=== PATIENT | female | born 1995 | race Caucasian/White ===

== ENCOUNTER → 2017-01-21 | Emergency (ER) | payer OTHER ==
[~2017-01-21] VITALS: Ht 167.6 cm; Wt 55.8 kg
[~2017-01-21] MED LIST: HC A30CR RC; KETOROLAC 30 MG/ML VIAL IVP ONE; MECL-106 PO; NS IV 1000 ML 1,000 ML IV SCH; ONDANSETRON 4 MG/2 ML (SDV) Z0FRAN IVP ONE; POLY119P5 PO; RX-ONDANSETRON 4 MG ODT (ZOFRAN) PPK #4 PO STA; SULF1TAB35 PO
[2017-01-21 20:50] VITALS: BP 130/85
--- NOTE | 2017-01-21 21:02 | ED Back Pain ---
General Chief Complaint: Back Problems Stated Complaint: BACK PAIN Nursing Triage Note: kidney pain/ vomitting since this am Nursing Sepsis Screen: No Definite Risk Source of Information: Patient Exam Limitations: No Limitations History of Present Illness Time Seen by Provider: 21:00 Initial Comments To ER with bilateral flank pain and vomiting since this morning. She reports frequent urination for several days. Timing/Duration: 2-3 Days Severity: Moderate Associated Symptoms: lower back pain Allergies and Home Medications Allergies Coded Allergies: hydrocodone (Verified Adverse Reaction, Mild, odd sensation, 07/20/15) Uncoded Allergies: [id number] (HAYFEVER) (Allergy, Mild, 07/26/09) Home Medications Hydrocortisone/Pramoxine 30 Gm Cream.appl, 30 GM RC UD PRN for HEMORRHOIDS, #1 Ref 0 apply to affected area qid x7-10 days prn hemorrhoids Prescribed by: JODY CRUZ on 11/16/15 1533 Polyethylene Glycol 3350 119 Gm Powder, 17 GM PO HS PRN for CONSTIPATION, #1 Ref 0 Prescribed by: JODY CRUZ on 11/16/15 1533 Constitutional: see HPI, No chills, No fever EENTM: see HPI Respiratory: no symptoms reported Cardiovascular: no symptoms reported Genitourinary: see HPI, frequency Musculoskeletal: see HPI, back pain Skin: no symptoms reported Psychiatric/Neurological: No Symptoms Reported Past Pxdmvfq-Ujjmum-Bxatft Hx Patient Social History Alcohol Use: Denies Use Recreational Drug Use: No Smoking Status: Never a Smoker Recent Foreign Travel: No Contact w/Someone Who Travel: No Recent Infectious Disease Expo: No Recent Hopitalizations: No Seasonal Allergies Seasonal Allergies: No Surgeries HX Surgeries: No Respiratory Hx Respiratory Disorders: No Cardiovascular Hx Cardiac Disorders: No Neurological Hx Neurological Disorders: No Reproductive System Hx Reproductive Disorders: No Genitourinary Hx Genitourinary Disorders: No Gastrointestinal Hx Gastrointestinal Disorders: No Musculoskeletal Hx Musculoskeletal Disorders: No Endocrine Hx Endocrine Disorders: No HEENT HX ENT Disorders: Yes (Right eye: Lazy eye) HEENT Disorders: Tinnitis Cancer Hx Cancer: No Psychosocial Hx Psychiatric Problems: No Integumentary HX Skin/Integumentary Disorder: No Blood Transfusions Hx Blood Disorders: No Adverse Reaction to a Blood Tr: No Family Medical History Significant Family History: No Pertinent Family Hx Physical Exam Vital Signs Vital Sign - Last 12Hours 01/21/17 20:50 Temp 100.8 Pulse 119 Resp 20 B/P (MAP) 130/85 Pulse Ox 100 O2 Delivery Room Air Capillary Refill : NONE General Appearance: No Apparent Distress, WD/WN, Anxious, Other (crying, tearful when starting the IV. Advised her that she needed the IV in case this was a pyelonephritis or sepsis she would need IV antibiotics and IV fluids however we would not force her to do anything and if she does not want the IV then she can sign a refusal of services form. She agrees to the IV.) HEENT: PERRL/EOMI, TMs Normal Neck: Full Range of Motion, Normal Inspection Cardiovascular: Normal Peripheral Pulses, Tachycardia Respiratory: Normal Breath Sounds, No Accessory Muscle Use, No Respiratory Distress Gastrointestinal: Non Tender, Soft Back: CVA Tenderness (L), CVA Tenderness (R) Extremity: Normal Capillary Refill, Normal Inspection Neurologic/Psychiatric: Alert, Oriented x3 Skin: Normal Color, Warm/Dry Progress/Results/Core Measures Results/Orders Lab Results Laboratory Tests Test 01/21/17 20:57 01/21/17 20:58 Range/Units Urine Color YELLOW Urine Clarity SLIGHTLY CLOUDY Urine pH 5 5-9 Urine Specific [place] 1.025 H 1.016-1.022 Urine Protein 2+ H NEGATIVE Urine Glucose (UA) NEGATIVE NEGATIVE Urine Ketones NEGATIVE NEGATIVE Urine Nitrite NEGATIVE NEGATIVE Urine Bilirubin NEGATIVE NEGATIVE Urine Urobilinogen NORMAL NORMAL MG/DL Urine Leukocyte Esterase 1+ H NEGATIVE Urine RBC (Auto) 5+ H NEGATIVE Urine RBC >100 H /HPF Urine WBC 0-2 /HPF Urine Squamous Epithelial Cells 25-50 H /HPF Urine Crystals NONE /LPF Urine Bacteria FEW H /HPF Urine Casts NONE /LPF Urine Mucus NEGATIVE /LPF Urine Culture Indicated NO White Blood Count 6.2 4.3-11.0 10^3/uL Red Blood Count 5.06 4.35-5.85 10^6/uL Hemoglobin 15.3 11.5-16.0 G/DL Hematocrit 44 35-52 % Mean Corpuscular Volume 86 80-99 FL Mean Corpuscular Hemoglobin 30 25-34 PG Mean Corpuscular Hemoglobin Concent 35 32-36 G/DL Red Cell Distribution Width 12.2 10.0-14.5 % Platelet Count 170 130-400 10^3/uL Mean Platelet Volume 10.3 7.4-10.4 FL Neutrophils (%) (Auto) 72 42-75 % Lymphocytes (%) (Auto) 16 12-44 % Monocytes (%) (Auto) 12 0-12 % Eosinophils (%) (Auto) 0 0-10 % Basophils (%) (Auto) 0 0-10 % Neutrophils # (Auto) 4.4 1.8-7.8 X 10^3 Lymphocytes # (Auto) 1.0 1.0-4.0 X 10^3 Monocytes # (Auto) 0.7 0.0-1.0 X 10^3 Eosinophils # (Auto) 0.0 0.0-0.3 10^3/uL Basophils # (Auto) 0.0 0.0-0.1 10^3/uL Sodium Level 140 135-145 MMOL/L Potassium Level 3.7 3.6-5.0 MMOL/L Chloride Level 108 H 98-107 MMOL/L Carbon Dioxide Level 21 21-32 MMOL/L Anion Gap 11 5-14 MMOL/L Blood Urea Nitrogen 11 7-18 MG/DL Creatinine 0.99 0.60-1.30 MG/DL Estimat Glomerular Filtration Rate > 60 BUN/Creatinine Ratio 11 Glucose Level 103 70-105 MG/DL Calcium Level 9.6 8.5-10.1 MG/DL Total Bilirubin 0.6 0.1-1.0 MG/DL Aspartate Amino Transf (AST/SGOT) 18 5-34 U/L Alanine Aminotransferase (ALT/SGPT) 10 0-55 U/L Alkaline Phosphatase 65 40-136 U/L Total Protein 7.5 6.4-8.2 G/DL Albumin 4.7 H 3.2-4.5 G/DL My Orders Orders - JOE PHOENIX APRN Ns Iv 1000 Ml (Sodium Chloride 0.9%) (01/21/17 21:00) Ketorolac Injection (Toradol Injection) (01/21/17 21:00) Ondansetron Injection (Zofran Injectio (01/21/17 21:00) Cbc With Automated Diff (01/21/17 20:59) Comprehensive Metabolic Panel (01/21/17 20:59) Ua Culture If Indicated (01/21/17 20:59) Urine Bedside (01/21/17 20:59) Saline Lock/Iv-Start (01/21/17 20:59) Ct Abd/Pelvis Wo(Kidney Stone) (01/21/17 21:14) Rx-Ondansetron Po (Rx-Zofran Po) (01/21/17 21:28) Medications Given in ED Current Medications Medications Dose Ordered Sig/Aime Route Start Time Stop Time Status Last Admin Dose Admin Ketorolac Tromethamine 30 mg ONCE ONCE IVP 01/21/17 21:00 01/21/17 21:01 DC 01/21/17 21:04 30 MG Ondansetron HCl 4 mg ONCE ONCE IVP 01/21/17 21:00 01/21/17 21:01 DC 01/21/17 21:05 4 MG Vital Signs/I&O Vital Sign - Last 12Hours 01/21/17 20:50 Temp 100.8 Pulse 119 Resp 20 B/P (MAP) 130/85 Pulse Ox 100 O2 Delivery Room Air Blood Pressure Mean: 100 Diagnostic Imaging Diagonstic Imaging: CT Comments NAME: ZOFIA CULVER [facility] REC#: [id number] PT STATUS: REG ER : 1995 PHYSICIAN: JOE PHOENIX APRN ADMIT DATE: 01/21/17/ER Draft Date of Exam:01/21/17 CT ABD/PELVIS WO(KIDNEY STONE) PROCEDURE: CT urinary tract, rule out kidney stone. TECHNIQUE: Multiple contiguous axial images were obtained through the abdomen and pelvis without the use of intravenous contrast. INDICATION: 22-year-old female presents with lower back pain and vomiting since morning. COMPARISON: None. FINDINGS: Lung bases are clear. Cardiac contour is normal. Liver shows uniform attenuation. There is no intraparenchymal mass or ductal dilatation. Gallbladder shows a fluid fluid level suggesting some biliary sludge. There is no wall thickening or pericholecystic fluid. Spleen and GE junction are normal. Stomach and duodenal sweep are also unremarkable. Pancreas shows sharp margins. Adrenals are normal. There is a 7 mm cyst in the right kidney containing a small calcification. No other discrete calculi are seen. There is no evidence of hydronephrosis. Both ureters are seen intermittently throughout their course with no evidence of hydroureter or ureteral calculus. Bladder is underfilled. The uterus and adnexa appear grossly unremarkable. The nonopacified loops of small bowel are unremarkable. There are, however, mesenteric nodes slightly prominent as would be seen with adenitis. The appendix is normal in size and contains small pockets of gas. There is no evidence of appendicitis. Large bowel contains fecal material and gas. There is no free air or free fluid. A few benign-appearing inguinal nodes are seen. Bone windows show no overall gross abnormalities. IMPRESSION: 1. Biliary sludge, but no secondary signs of acute cholecystitis; however, correlation with gallbladder ultrasound may be of further value. 2. Incidental small 7 mm cyst in the right kidney with a small calcification but no evidence of obstructive uropathy. 3. There is no evidence of appendicitis. 4. Mesenteric nodes are slightly prominent with some minimal stranding. Mesenteric adenitis is within the differential. Dictated on workstation # [id number] Dict: 01/21/172133 Trans: 01/21/172142 [facility] [id number] Interpreted by: ALEJANDRO PENA MD Electronically signed by: Departure Impression Impression: Primary Impression: Musculoskeletal back pain Disposition: HOME, SELF-CARE Condition: Stable Departure-Patient Inst. Decision time for Depature: 21:04 Referrals: [facility] (PCP/Family) Primary Care Physician Patient Instructions: Urinary Tract Infection, Adult (DC) Add. Discharge Instructions: 1. Drink plenty of fluids 2. Nausea medication as needed 3. Tylenol and Motrin for pain 4. Return to ER for any worsening 5. Follow-up with your doctor later this week All discharge instructions reviewed with patient and/or family. Voiced understanding. Copy Copies To 1: RAINER GILLIAM PETER J APRN Jan 21, 2017 21:02
[2017-01-21 21:05] LABS: BILIRUBIN,URINE NEGATIVE (NEGATIVE); KETONES,URINE NEGATIVE (NEGATIVE); LEUKOCYTE ESTERASE ,URINE 1+ (NEGATIVE); NITRITE,URINE NEGATIVE (NEGATIVE); PH,URINE 5 (5-9); PROTEIN,URINE 2+ (NEGATIVE); UROBILINOGEN,URINE NORMAL (NORMAL)
[2017-01-21 21:05] LABS: BASOPHILS % (AUTO) 0 % (0-10); EOSINOPHILS % (AUTO) 0 % (0-10); LYMPHOCYTES % (AUTO) 16 % (12-44); MEAN CORPUSCULAR HEMOGLOBIN 30 PG (25-34); MEAN CORPUSCULAR HGB CONC 35 G/DL (32-36); MEAN CORPUSCULAR VOLUME 86 FL (80-99); MEAN PLATELET VOLUME 10.3 FL (7.4-10.4); MONOCYTES # (AUTO) 0.7 X 10^3 (0.0-1.0); MONOCYTES % (AUTO) 12 % (0-12); NEUTROPHILS # (AUTO) 4.4 X 10^3 (1.8-7.8); NEUTROPHILS % (AUTO) 72 % (42-75); PLATELET COUNT 170 10^3/uL (130-400); RED BLOOD COUNT 5.06 10^6/uL (4.35-5.85); RED CELL DISTRIBUTION WIDTH 12.2 % (10.0-14.5); WHITE BLOOD COUNT 6.2 10^3/uL (4.3-11.0)
[2017-01-21 21:13] LABS: SQUAMOUS EPITHELIAL CELL,UR 25-50 /HPF; WBC,URINE 0-2 /HPF
[2017-01-21 21:19] LABS: ALANINE AMINOTRANSFERASE 10 U/L (0-55); ALBUMIN 4.7 G/DL (3.2-4.5); ANION GAP 11 MMOL/L (5-14); ASPARTATE AMINO TRANSFERASE 18 U/L (5-34); BILIRUBIN,TOTAL 0.6 MG/DL (0.1-1.0); BLOOD UREA NITROGEN 11 MG/DL (7-18); BUN/CREATININE RATIO 11; CALCIUM 9.6 MG/DL (8.5-10.1); CARBON DIOXIDE 21 MMOL/L (21-32); CHLORIDE 108 MMOL/L (98-107); CREATININE SERUM 0.99 MG/DL (0.60-1.30); GFR ESTIMATED > 60; GLUCOSE 103 MG/DL (70-105); POTASSIUM 3.7 MMOL/L (3.6-5.0); SODIUM 140 MMOL/L (135-145); TOTAL PROTEIN 7.5 G/DL (6.4-8.2)
--- NOTE | 2017-01-21 21:43 | Diagnostic Imaging Report ---
PROCEDURE: CT urinary tract, rule out kidney stone. TECHNIQUE: Multiple contiguous axial images were obtained through the abdomen and pelvis without the use of intravenous contrast. INDICATION: 22-year-old female presents with lower back pain and vomiting since morning. COMPARISON: None. FINDINGS: Lung bases are clear. Cardiac contour is normal. Liver shows uniform attenuation. There is no intraparenchymal mass or ductal dilatation. Gallbladder shows a fluid fluid level suggesting some biliary sludge. There is no wall thickening or pericholecystic fluid. Spleen and GE junction are normal. Stomach and duodenal sweep are also unremarkable. Pancreas shows sharp margins. Adrenals are normal. There is a 7 mm cyst in the right kidney containing a small calcification. No other discrete calculi are seen. There is no evidence of hydronephrosis. Both ureters are seen intermittently throughout their course with no evidence of hydroureter or ureteral calculus. Bladder is underfilled. The uterus and adnexa appear grossly unremarkable. The nonopacified loops of small bowel are unremarkable. There are, however, mesenteric nodes slightly prominent as would be seen with adenitis. The appendix is normal in size and contains small pockets of gas. There is no evidence of appendicitis. Large bowel contains fecal material and gas. There is no free air or free fluid. A few benign-appearing inguinal nodes are seen. Bone windows show no overall gross abnormalities. IMPRESSION: 1. Biliary sludge, but no secondary signs of acute cholecystitis; however, correlation with gallbladder ultrasound may be of further value. 2. Incidental small 7 mm cyst in the right kidney with a small calcification but no evidence of obstructive uropathy. 3. There is no evidence of appendicitis. 4. Mesenteric nodes are slightly prominent with some minimal stranding. Mesenteric adenitis is within the differential. Dictated by: Dictated on workstation # [id number]
--- OUTSIDE RECORDS SUMMARY | 2017-01-24 10:49 | XMS REPORT | Clinical Summary ---
Author Author Admin, HALI Organization [facility] Address Unknown Phone Unavailable Allergies, Adverse Reactions, Alerts Allergy Name Reaction Description Start Date Severity Status Provider NKDA Mild No Longer Active Wesley Ham MD HYDROCODONE-ACETAMINOPHEN Patient states makes her feel "high" or "loopy" Moderate Active Wesley Ham MD NKDA Critical No Longer Active Maxwell WILKERSON NKDA UNK Inactive Maria Fernanda Jolly LPN Conditions or Problems Problem Name Problem Code Onset Date Status Entry Date Provider Comment Standard Description Annotate UPPER RESPIRATORY INFECTION (URI) 465.9 Active Maxwell WILKERSON Acute upper respiratory infections of unspecified site EUSTACHIAN TUBE DYSFUNCTION, BILATERAL 381.81 Active Klever Reeves DO Dysfunction of Eustachian tube ABDOMINAL CRAMPS 789.00 Active Klever Reeves DO Abdominal pain, unspecified site DYSMENORRHEA 625.3 Active Maxwell WILKERSON Dysmenorrhea TINNITUS 388.30 Active Maxwell WILKERSON Tinnitus, unspecified MUSCLE STRAIN, ABDOMINAL WALL 848.8 Active Phillip WILKERSON Other specified sites of sprains and strains Medication List Medication Instructions Start Date Stop Date Generic Name NDC Status Provider Patient Instruction HYDROCODONE-ACETAMINOPHEN 5-325 MG TABS 1 PO q 8 hrs PRN cramps, pain HYDROCODONE-ACETAMINOPHEN [id number] No Longer Active Phillip WILKERSON Active NASONEX 50 MCG/ACT SUSP 1 spray each nostril q am and hs for ear pain with ringing MOMETASONE FUROATE 79832299551 No Longer Active Maxwell WILKERSON Active ZITHROMAX 500 MG TABS 1 tablet by mouth daily AZITHROMYCIN 97853100679 No Longer Active Maxwell WILKERSON Active NASONEX 50 MCG/ACT SUSP 1 spray each nostril q am and hs for ear pain with ringing NASONEX 50 MCG/ACT SUSP MOMETASONE FUROATE Inactive HYDROCODONE-ACETAMINOPHEN 5-325 MG TABS 1 PO q 8 hrs PRN cramps, pain HYDROCODONE-ACETAMINOPHEN 5-325 MG TABS 629544 HYDROCODONE- ACETAMINOPHEN Inactive ZITHROMAX 500 MG TABS 1 tablet by mouth daily ZITHROMAX 500 MG TABS 2301626 AZITHROMYCIN Inactive Advance Directives Directive Description Start Date PERMISSION TO SHARE Vital Signs Date Name Value Unit Range Description blood pressure, diastolic - 8462-4 72 mm[Hg] BP dobbins blood pressure, systolic - 8480-6 115 mm[Hg] BP sys pulse rate E&M - 8867-4 83 /min Heart rate temperature E&M 96.7 [degF] Body temperature weight E&M - 3141-9 123 [lb_av] Weight Measured Encounters Code Encounter Date Provider Facility CPT-12767 Level 3 Est. 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 Patient 11:29:17 CDT Phillip WILKERSON [facility] CPT-48258 Level 3 Est. Patient 14:27:21 CDT Maxwell WILKERSON [facility] CPT-38446 Level 3 Est. Patient 05:42:01 CDT Klever Reeves DO [facility] CPT-93304 Level 3 Est. Patient 18:34:34 BILINGUAL OPERATOR Maxwell WILKERSON [facility] Procedures Code Procedure Name Date Entry Date Standard Description CPT-98066 Abd single AP View 14:54:46 CDT
--- OUTSIDE RECORDS SUMMARY | 2017-01-24 10:49 | XMS REPORT | Continuity of Care Document ---
Author Author [facility] Address Unknown Phone Unavailable Allergies Active Description Code Type Severity Reaction Onset Reported/Identified Relationship to Patient Clinical Status Yes [id number] (HAYFEVER) [id number] (HAYFEVER) Mild N/A 07/26/2009 Yes hydrocodone [id number] Drug Allergy Mild odd sensation 07/20/2015 Medications Problems Date Dx Coded Attending Type Code Diagnosis Diagnosed By 10/30/2014 DOUGLAS PORTER APRN 564.00 CONSTIPATION 07/20/2015 Ot 620.2 07/20/2015 EVI DUNCAN MD Ot V70.5 07/20/2015 JOE PHOENIX APRN Ot 780.4 DIZZINESS AND GIDDINESS 07/20/2015 JOE PHOENIX APRN Ot 784.0 HEADACHE 07/20/2015 Ot 620.2 07/20/2015 EVI DUNCAN MD Ot V70.5 07/22/2015 Ot 620.2 07/22/2015 EVI DUNCAN MD Ot V70.5 10/04/2015 Ot 620.2 10/04/2015 EVI DUNCAN MD Ot V70.5 11/16/2015 Ot 620.2 11/16/2015 EVI DUNCAN MD Ot V70.5 11/16/2015 JODY BRUNO Ot K59.00 CONSTIPATION, UNSPECIFIED 11/16/2015 JODY BRUNO Ot K64.4 RESIDUAL HEMORRHOIDAL SKIN TAGS 11/16/2015 JODY BRUNO Ot N39.0 URINARY TRACT INFECTION, SITE NOT SPECIF 02/17/2016 Ot 620.2 OVARIAN CYST NEC/NOS 02/17/2016 EVI DUNCAN MD Ot V70.5 HEALTH EXAM-GROUP SURVEY 10/16/2016 EVI DUNCAN MD Ot V70.5 HEALTH EXAM-GROUP SURVEY 10/16/2016 JOE PHOENIX APRN Ot R07.89 OTHER CHEST PAIN 10/19/2016 JOE PHOENIX APRN Ot R07.89 OTHER CHEST PAIN 10/20/2016 JOE PHOENIX APRN Ot R07.89 OTHER CHEST PAIN Procedures Results Test Result Range Complete urinalysis with reflex to culture - 01/21/17 20:57 Urine color determination YELLOW NRG Urine clarity determination SLIGHTLY CLOUDY NRG Urine pH measurement by test strip 5 5- 9 Specific gravity of urine by test strip 1.025 1.016-1.022 Urine protein assay by test strip, semi-quantitative 2+ NEGATIVE Urine glucose detection by automated test strip NEGATIVE NEGATIVE Erythrocytes detection in urine sediment by light microscopy 5+ NEGATIVE Urine ketones detection by automated test strip NEGATIVE NEGATIVE Urine nitrite detection by test strip NEGATIVE NEGATIVE Urine total bilirubin detection by test strip NEGATIVE NEGATIVE Urine urobilinogen measurement by automated test strip (mass/volume) NORMAL NORMAL Urine leukocyte esterase detection by dipstick 1+ NEGATIVE Automated urine sediment erythrocyte count by microscopy (number/high power field) > [HPF] NRG Automated urine sediment leukocyte count by microscopy (number/high power field ) [HPF] NRG Bacteria detection in urine sediment by light microscopy FEW NRG Squamous epithelial cells detection in urine sediment by light microscopy 25-50 NRG Crystals detection in urine sediment by light microscopy NONE NRG Casts detection in urine sediment by light microscopy NONE NRG Mucus detection in urine sediment by light microscopy NEGATIVE NRG Complete urinalysis with reflex to culture NO NRG Complete blood count (CBC) with automated white blood cell (WBC) differential - 01/21/17 20:58 Blood leukocytes automated count (number/volume) 6.2 10*3/ uL 4.3-11.0 Blood erythrocytes automated count (number/volume) 5.06 10*6 /uL 4.35-5.85 Venous blood hemoglobin measurement (mass/volume) 15.3 g/dL 11.5-16.0 Blood hematocrit (volume fraction) 44 % 35-52 Automated erythrocyte mean corpuscular volume 86 [foz_us] 80-99 Automated erythrocyte mean corpuscular hemoglobin (mass per erythrocyte) 30 pg 25-34 Automated erythrocyte mean corpuscular hemoglobin concentration measurement ( mass/volume) 35 g/dL 32-36 Automated erythrocyte distribution width ratio 12.2 % 10.0-14.5 Automated blood platelet count (count/volume) 170 10*3/uL 130-400 Automated blood platelet mean volume measurement 10.3 [foz_ us] 7.4-10.4 Automated blood neutrophils/100 leukocytes 72 % 42-75 Automated blood lymphocytes/100 leukocytes 16 % 12-44 Blood monocytes/100 leukocytes 12 % 0-12 Automated blood eosinophils/100 leukocytes 0 % 0-10 Automated blood basophils/100 leukocytes 0 % 0-10 Blood neutrophils automated count (number/volume) 4.4 10*3 1.8-7.8 Blood lymphocytes automated count (number/volume) 1.0 10*3 1.0-4.0 Blood monocytes automated count (number/volume) 0.7 10*3 0.0-1.0 Automated eosinophil count 0.0 10*3/uL 0.0-0.3 Automated blood basophil count (count/volume) 0.0 10*3/uL 0.0-0.1 Comprehensive metabolic panel - 01/21/17 20:58 Serum or plasma sodium measurement (moles/volume) 140 mmol/ L 135-145 Serum or plasma potassium measurement (moles/volume) 3.7 mmol/L 3.6-5.0 Serum or plasma chloride measurement (moles/volume) 108 mmol /L 98-107 Carbon dioxide 21 mmol/L 21-32 Serum or plasma anion gap determination (moles/volume) 11 mmol/L 5-14 Serum or plasma urea nitrogen measurement (mass/volume) 11 mg/dL 7-18 Serum or plasma creatinine measurement (mass/volume) 0.99 mg /dL 0.60-1.30 Serum or plasma urea nitrogen/creatinine mass ratio 11 NRG Serum or plasma creatinine measurement with calculation of estimated glomerular filtration rate > NRG Serum or plasma glucose measurement (mass/volume) 103 mg/dL 70-105 Serum or plasma calcium measurement (mass/volume) 9.6 mg/dL 8.5-10.1 Serum or plasma total bilirubin measurement (mass/volume) 0.6 mg/dL 0.1-1.0 Serum or plasma alkaline phosphatase measurement (enzymatic activity/volume) 65 U/L 40-136 Serum or plasma aspartate aminotransferase measurement (enzymatic activity/ volume) 18 U/L 5-34 Serum or plasma alanine aminotransferase measurement (enzymatic activity/volume ) 10 U/L 0-55 Serum or plasma protein measurement (mass/volume) 7.5 g/dL 6.4-8.2 Serum or plasma albumin measurement (mass/volume) 4.7 g/dL 3.2-4.5 Encounters ACCT No. Visit Date/Time Discharge Status Pt. Type Provider Facility Loc./Unit Complaint [id number] 10/30/2014 17:26:00 10/30/2014 23: 59:59 CLS Outpatient DOUGLAS PORTER APRN
--- OUTSIDE RECORDS SUMMARY | 2017-01-24 10:49 | XMS REPORT ---
Author Author DIPTI YATES Organization [employer] Address Unknown Phone Unavailable Care Team Providers Care Counter Maker Name Role Phone DIPTI YATES CP Unavailable Allergies No Known Allergies Problems Problem Type Condition Code Onset Dates Condition Status Problem Oligomenorrhea N91.5 Active Problem Primary dysmenorrhea N94.4 Active Medications No Known Medications Results No Known Results Summary Purpose [employer] Submission
--- OUTSIDE RECORDS SUMMARY | 2017-01-24 10:50 | XMS REPORT ---
Author Author RITO PANDEY [employer] Address Unknown Phone Unavailable Care Team Providers Care Physician [facility] Name Role Phone RITO PANDEY CP Unavailable Allergies No Known Allergies Problems Problem Type Condition ICD-9 Code Onset Dates Condition Status Assessment Dental examination V72.2 Active Medications No Known Medications Procedures Procedure Coding System Code Date INTRAORL-PERIAPICAL 1 FILM 80334 CPT-4 D0220 May 20, 2015 INTRAORL-PERIAPICAL EA ADD FILM CPT-4 D0230 May 20, 2015 COMP ORAL EVALUATION - NEW/EST PT CPT-4 D0150 May 20, 2015 TOPICAL FLUORIDE VARNISH CPT-4 D1206 May 20, 2015 BITEWINGS - FOUR FILMS CPT-4 D0274 May 20, 2015 INTRAORL-PERIAPICAL EA ADD FILM CPT-4 D0230 May 20, 2015 PROPHYLAXIS - ADULT CPT-4 D1110 May 20, 2015 PANORAMIC FILM SEE ALSO CODE 21686 CPT-4 D0330 May 20, 2015 Results No Known Results Summary Purpose [employer] Submission
--- OUTSIDE RECORDS SUMMARY | 2017-01-24 10:50 | XMS REPORT ---
Author RAINER Kang [employer] Address Unknown Phone Unavailable Care Team Providers Care Liquid Yeast Supervisor Name Role Phone RAINER GILLIAM CP Unavailable Allergies No Known Allergies Problems Problem Type Condition Code Onset Dates Condition Status Problem Encounter for Depo-Provera contraception Z30.42 Active Problem Primary dysmenorrhea N94.4 Active Problem Wellness examination Z00.00 Active Problem Oligomenorrhea N91.5 Active Assessment Encounter for Depo-Provera contraception Z30.42 Active Medications No Known Medications Procedures Procedure Coding System Code Date DEPO PROVERA (150 MG/ML) CPT-4 J1050 Sep 18, 2016 THER/PROPH/DIAG INJ, SC/IM CPT-4 92678 Sep 18, 2016 URINE TEST CPT-4 64936 Sep 18, 2016 Results Name Result Date Reference Range Unit Abnormality Flag TEST, URINE (IN HOUSE) ----RESULTS negative [id number] ----Lot # [id number] ----Control + [id number] ----Exp date [id number] Summary Purpose [employer] Submission
--- OUTSIDE RECORDS SUMMARY | 2017-01-24 10:50 | XMS REPORT ---
Author Author DIPTI YATES Organization [employer] Address Unknown Phone Unavailable Care Team Providers Care Swimming Pool Maintenance Name Role Phone DIPTI YATES CP Unavailable Allergies, Adverse Reactions, Alerts Substance Reaction Event Type Hydrocodone Bitartrate Info Not Available Drug Allergy Problems Problem Type Condition Code Onset Dates Condition Status Problem Oligomenorrhea N91.5 Active Assessment Encounter for Depo-Provera contraception Z30.42 Active Problem Primary dysmenorrhea N94.4 Active Medications Medication Code System Code Instructions Start Date End Date Status Dosage Ibuprofen [facility] [address]-35 600 mg January 01, 2015 take 1 tablet by Oral route 3 times per day with food PRN for pain Procedures Procedure Coding System Code Date DEPO PROVERA (150 MG/ML) CPT-4 J1050 February 04, 2016 THER/PROPH/DIAG INJ, SC/IM CPT-4 94795 February 04, 2016 URINE TEST CPT-4 10906 February 04, 2016 Office Visit, Est Pt., Level 3 CPT-4 73045 February 04, 2016 Vital Signs Date/Time: February 04, 2016 Temperature 98.3 F Weight 124.6 lbs Height 64 in BMI 21.39 Index Blood Pressure Diastolic 72 mmHg Blood Pressure Systolic 120 mmHg Cardiac Monitoring Heart Rate 88 bpm Results No Known Results Summary Purpose [employer] Submission
--- OUTSIDE RECORDS SUMMARY | 2017-01-24 10:50 | XMS REPORT ---
Author Author DIPTI YATES Organization [employer] Address Unknown Phone Unavailable Care Team Providers Care Can Technician Name Role Phone DIPTI YATES CP Unavailable Allergies No Known Allergies Problems Problem Type Condition Code Onset Dates Condition Status Problem Encounter for Depo-Provera contraception Z30.42 Active Problem Primary dysmenorrhea N94.4 Active Problem Wellness examination Z00.00 Active Problem Oligomenorrhea N91.5 Active Medications No Known Medications Results No Known Results Summary Purpose [employer] Submission
--- OUTSIDE RECORDS SUMMARY | 2017-01-24 10:50 | XMS REPORT | Clinical Summary ---
Author Author Admin, HALI Organization [facility] Address Unknown Phone Unavailable Allergies, Adverse Reactions, [...] q 8 hrs PRN cramps, pain HYDROCODONE-ACETAMINOPHEN 48292737172 No Longer Active Phillip WILKERSON Active NASONEX 50 MCG/ACT SUSP 1 spray each nostril q am and hs for ear pain with ringing MOMETASONE FUROATE 14535374231 No Longer Active Maxwell WILKERSON Active ZITHROMAX 500 MG TABS 1 tablet by mouth daily AZITHROMYCIN 42063899647 No Longer Active Maxwell WILKERSON Active NASONEX 50 MCG/ACT SUSP 1 spray each nostril q am and hs for ear pain with ringing NASONEX 50 MCG/ACT SUSP MOMETASONE FUROATE Inactive HYDROCODONE-ACETAMINOPHEN 5-325 MG TABS 1 PO q 8 hrs PRN cramps, pain HYDROCODONE-ACETAMINOPHEN 5-325 MG TABS 495304 HYDROCODONE- ACETAMINOPHEN Inactive ZITHROMAX 500 MG TABS 1 tablet by mouth daily ZITHROMAX 500 MG TABS [id number] AZITHROMYCIN Inactive Advance Directives Directive Description Start [...] Measured Encounters Code Encounter Date Provider Facility CPT-53116 Level 3 Est. Patient 19:05:19 NEGATIVE CLEANER Wesley Ham MD [facility] CPT-28420 Level 3 Est. Patient 11:29:17 CDT Phillip WILKERSON [facility] CPT-02942 Level 3 Est. Patient 14:27:21 CDT Maxwell WILKERSON [facility] CPT-87619 Level 3 Est. Patient 05:42:01 CDT Klever Reeves DO [facility] CPT-78476 Level 3 Est. Patient 18:34:34 NEGATIVE CLEANER Maxwell WILKERSON [facility] Procedures Code Procedure Name Date Entry Date Standard Description CPT-22733 Abd single AP View 14:54:46 CDT
--- OUTSIDE RECORDS SUMMARY | 2017-01-24 10:50 | XMS REPORT ---
Author Author ASHLEY DAVID Organization [facility] Address [address] [place] [address] Care Team Providers Care Isobutylene Operator Chief Name Role Phone ASHLEY DAVID Unavailable PROBLEMS Type Condition ICD9-CM Code ERI59-IU Code Onset Dates Condition Status SNOMED Code Problem Wellness examination Z00.00 Active 057881380 Problem Encounter for Depo-Provera contraception Z30.42 Active 644873732 Assessment Primary dysmenorrhea N94.4 Jul, Active 78618097 Problem Primary dysmenorrhea N94.4 Active 39039886 Problem Oligomenorrhea N91.5 Active 56806861 ALLERGIES Substance Reaction Event Type Date Status Hydrocodone Bitartrate Unknown Drug Allergy Jul, Active SOCIAL HISTORY No smoking Hx information available PLAN OF CARE VITAL SIGNS Height 64 in 2016-07-03 Weight 123 lbs 2016-07-03 Heart Rate 70 bpm 2016-07-03 Respiratory Rate 18 2016-07-03 BMI 21.11 kg/m2 2016-07-03 Blood pressure systolic 104 mmHg 2016-07-03 Blood pressure diastolic 66 mmHg 2016-07-03 MEDICATIONS Medication Instructions Dosage Frequency Start Date End Date Duration Status Depo-Provera 150 MG/ML 1 ml Active RESULTS Name Result Date Reference Range PAP TEST, HPV IF ASCUS 2016-07-03 DIAGNOSIS: Recommendation: Specimen adequacy: Clinician provided ICD10: Performed by: Electronically signed by: . . Pathologist provided ICD10: Note: . HPV, high-risk Positive Negative CULTURE, GENITAL 2016-07-03 Genital Culture, Routine Final report Result 1 GC/CHLAM PROBE (STATE) CHLAMYDIA GC TEST, URINE (IN HOUSE) 2016-07-03 RESULTS negative Lot # [id number] Control + Exp date TRICHOMONAS (IN HOUSE) 2016-07-03 TRICHOMONAS Negative Control + Lot # [id number] Exp date 2017-09 PDF Report 2016-07-03 PDF Report1 LCLS BACTERIAL VAGINOSIS (IN HOUSE) 2016-07-03 RESULTS Negative Control + Lot # [id number] Exp date 2017-04 PROCEDURES Procedure Date Ordered Related Diagnosis Body Site URINE TEST Jul 03, 2016 CULTURE, BACTERIA, OTHER Jul 03, 2016 DEPO PROVERA (150 MG/ML) Jul 03, 2016 Office Visit, Est Pt., Level 4 Jul 03, 2016 THER/PROPH/DIAG INJ, SC/IM Jul 03, 2016 No Charge Jul 03, 2016 TRICHOMONAS ASSAY W/OPTIC Jul 03, 2016 DICKERSON VAG, DNA, DIR PROBE Jul 03, 2016 SPECIMEN HANDLING Jul 03, 2016 IMMUNIZATIONS Vaccine Route Administration Date Status DEPO PROVERA (150 MG/ML) IM Intramuscular Jul 03, 2016 Administered
== END | disposition home or self-care (01) ==
LOC: EDUNIT# 20:37 → ER 20:39
DX: M54.5 Low back pain (principal); N28.1 Cyst of kidney, acquired; K83.8 Other specified diseases of biliary tract
CPT/HCPCS: 36415; 74176; 80053; 81000; 84703; 85025; 96374; 96375

== ENCOUNTER → 2017-08-04 | Outpatient (CLI) | payer OTHER ==
[~2017-08-04] MED LIST changes: +GADOBUTROL 7.5 MMOL/7.5 ML (GADAVIST) VIAL IV ONE; -KETOROLAC 30 MG/ML VIAL IVP ONE; -NS IV 1000 ML 1,000 ML IV SCH; -ONDANSETRON 4 MG/2 ML (SDV) Z0FRAN IVP ONE; -RX-ONDANSETRON 4 MG ODT (ZOFRAN) PPK #4 PO STA
--- NOTE | 2017-08-04 13:16 | Diagnostic Imaging Report ---
PROCEDURE: MR imaging of the brain with and without contrast. TECHNIQUE: Multiplanar, multisequence MR imaging of the brain was performed with and without contrast. INDICATION: Dizzy spells and chronic headaches. 5 mL of Gadavist is administered intravenously. FINDINGS: There is no diffusion restriction to suggest an acute infarct or other diffusion abnormality. The brain parenchyma demonstrates normal signal intensity in the [place] and white matter. No demyelinating lesion, brain edema or enhancing mass. No hydrocephalus. No extra-axial fluid collection is seen. The pituitary gland is normal in size. No hypothalamic or pineal region mass. The internal auditory canals and inner ear structures appear symmetric. Central vascular flow-voids appear preserved. The orbits and paranasal sinuses appear unremarkable. IMPRESSION: Unremarkable exam. Dictated by: Dictated on workstation # [id number]
== END ==
LOC: RAD 10:25
PROVIDERS: ATTEND Nurse Practitioner Family
DX: R42 Dizziness and giddiness; R51 Headache
CPT/HCPCS: 70553

== ENCOUNTER → 2017-08-09 | Outpatient (CLI) | payer OTHER ==
--- NOTE | 2017-08-09 12:24 | Diagnostic Imaging Report ---
PROCEDURE: MRI neck with and without contrast. TECHNIQUE: Multiplanar, multisequence MRI of the neck was performed with and without contrast. INDICATION: Dizziness. Left side throat pain and lump felt from the inside of the throat. 5 mL of Gadavist is administered intravenously. FINDINGS: The mucosal pharyngeal space appears fairly symmetric with no mass identified. The parotid and submandibular glands appear symmetric. The thyroid gland appears unremarkable. There are no significantly enlarged lymph nodes along the cervical chain on either side. No soft tissue mass or fluid collection of significance is seen in the neck. There is mild mucosal thickening in the nasal turbinates particularly prominent along the inferior nasal turbinates and there is suggestion of a katherine bullosa in the left middle turbinate. This narrows the nasal passages without complete obliteration however. The visualized portions of the paranasal sinuses appear grossly unremarkable. IMPRESSION: Unremarkable exam. Dictated by: Dictated on workstation # [id number]
== END ==
LOC: RAD 10:54
PROVIDERS: ATTEND Nurse Practitioner Family
DX: R42 Dizziness and giddiness (principal)
CPT/HCPCS: 70543

== ENCOUNTER 2017-09-02 18:34 | Emergency (ER) | payer SELFPAY ==
[~2017-09-02] VITALS: Ht 167.6 cm; Wt 55.8 kg
[~2017-09-02 18:34] MED LIST changes: -GADOBUTROL 7.5 MMOL/7.5 ML (GADAVIST) VIAL IV ONE
--- OUTSIDE RECORDS SUMMARY | 2017-09-02 18:52 | XMS REPORT | Continuity of Care Document ---
Author Author [facility] Organization [facility] Address [address] [place] [address] Phone Unavailable Care Team Providers Care Traveling Operator Name Role Phone SHAHRIAR SANCHEZ MD PCP Advance Directives Directive Response Recorded Date/Time Advance Directives No 03/13/17 1:58am Advance Directive on File No 03/13/17 2:30am Durable POA for HC No 03/13/17 2:30am Power of Finisher [employer] No 03/13/17 2:30am Organ Donor No 03/13/17 2:30am Living Will No 03/13/17 2:30am What is your agent's or insurance account representative's phone number? No 03/13/17 1:59am Chief Complaint and Reason for Visit Chief Complaint General Complaint Reason for Visit Panic attack Problems Active Problems Medical Problem Onset Date Status Panic attack Unknown Acute Medications Current Home Medications Medication Dose Units Route Directions Days/Qty Instructions Start Date Norgestimate-Ethinyl Estradiol 1 Each 1 Tab-Cap Oral Once A Day for Contraception 28 03/13/17 Social History Social History Problem Response Recorded Date/Time Smoking Status Current every day smoker 03/13/2017 2:46am Smoked in the last 12 months? No 03/13/2017 2:46am Do you dip or chew tobacco? No 03/13/2017 2:46am Approx how many cigs per day? 0 03/13/2017 2:46am Level of Dependence Low 03/13/2017 2:46am Former smoker, last day smoked? NA 03/13/2017 2:46am Query Response Start Date Stop Date Smoking Status Current every day smoker Hospital Discharge Instructions No hospital discharge instructions. Plan of Care Discharge Date 03/13/17 3:10am Disposition 01 D/C HOME Condition at Discharge Stable Instructions/Education Provided Anxiety (ED) Forms Provided ER Discharge Phone Call Check Prescriptions See Medication Section Referrals SHAHRIAR SANCHEZ MD - Additional Instructions/Education Do not take sertraline any more. You might ask about citalopram instead, as it helps both depression and anxiety. Reference Links Reference Text What is panic disorder? Panic disorder is a condition that can make a person feel very scared and anxious for short periods of time. When this happens, it is called a "panic attack." The attacks can also cause chest pain and breathing problems that cause people to visit doctors or emergency rooms. What are the symptoms of panic disorder? People with panic disorder have panic attacks that can make them: ?Feel very scared and nervous ?Have physical symptoms such as: Chest pain Trouble breathing A fast heartbeat Headache Stomachache Dizziness The attacks happen without warning and can last several minutes to an hour. People with panic disorder might also: ?Worry about having panic attacks in the future ?Avoid situations that might cause them to have a panic attack ?See doctors or go to emergency rooms when they have panic attacks Is there a test for panic disorder? No. There is no test. But your doctor or nurse should be able to tell if you have it by learning about your symptoms. How is panic disorder treated? Treatments include: ?Cognitive behavioral therapy (CBT) In this type of therapy, you talk with a psychologist or counselor about the things you think and do. Then he or she helps you change how you think about your situation and how you react to it. This teaches you how to cope better with your panic disorder. ?Medicines Some medicines used to treat depression or anxiety can help people with panic disorder. Your doctor or nurse will decide which medicines are best for your situation. Some people have CBT and also take medicines. What if I want to get ? If you take medicines to treat panic disorder, talk to your doctor before you start trying to get . Some of the medicines used to treat panic disorder can cause problems for unborn babies, so you might need to switch medicines before you get . Functional Status Query Response Date Recorded Activities of Daily Living Performs w/o Assistance March 13, 2017 2:46am Cognitive Function Intact March 13, 2017 2:46am Allergies, Adverse Reactions, Alerts No allergy information available. Immunizations No immunization records. Vital Signs Acute Vital Signs Vital Response Date/Time Temperature (Fahrenheit) 97.9 degrees F (97.6 - 99.5) 03/13/2017 2:58am Temperature (Calculated Celsius) 36.84073 degrees C (36.4 - 37.5) 03/13/2017 2:58am Temperature Source Oral 03/13/2017 2:58am Pulse Pulse Ox Pulse Rate (adult) 83 beats per minute (60 - 90) 03/13/2017 2:58am Pulse Location Modifier Right 03/13/2017 2:58am Oxygen Saturation Respiratory Rate 16 breaths per minute (12 - 24) 03/13/2017 2:58am O2 Sat by Pulse Oximetry 98 % (90 - 100) 03/13/2017 2:58am Blood Pressure 114/91 mm Hg 03/13/2017 2:58am Blood Pressure Mean 99 mm Hg 03/13/2017 2:58am Height 5 ft 6 in Weight 126 lb Body Mass Index 20.3 kg/m^2 Results Laboratory Results Test Name Result Units Flags Reference Collection Date/Time Result Date/ Time Comments White Blood Count 6.5 x10^3/uL 4.0-11.0 03/13/2017 1:03/13/2017 1: 47am Red Blood Count 4.30 10^6/uL 3.80-5.80 03/13/2017 1:03/13/2017 1: 47am Hematocrit 37.7 % 37.0-47.0 03/13/2017 1:03/13/2017 1:47am Mean Corpuscular Volume 88 fl 76-96 03/13/2017 1:03/13/2017 1: 47am Mean Corpuscular Hemoglobin 30.7 pg 27.0-32.0 03/13/2017 1:2016 1:47am Mean Corpuscular Hemoglobin Concent 35.0 g/dl 31.0-35.0 03/13/2017 1: 03/13/2017 1:47am Red Cell Distribution Width 12.1 % 11.0-16.0 03/13/2017 1:2016 1:47am Platelet Count 151 10^3/uL 150-500 03/13/2017 1:03/13/2017 1:47am Mean Platelet Volume 10.2 fl H 6.0-10.0 03/13/2017 1:03/13/2017 1: 47am Neutrophils (%) (Auto) 59.1 % 45.0-70.0 03/13/2017 1:03/13/2017 1: 47am Lymphocytes (%) (Auto) 30.8 % 20.0-40.0 03/13/2017 1:03/13/2017 1: 47am Monocytes (%) (Auto) 8.7 % 3.0-10.0 03/13/2017 1:03/13/2017 1: 47am Eosinophils (%) (Auto) 1.1 % 1.0-5.0 03/13/2017 1:03/13/2017 1: 47am Basophils (%) (Auto) 0.3 % 0.0-0.5 03/13/2017 1:03/13/2017 1:47am Neutrophils # (Auto) 3.86 x10^3/uL 2.00-7.50 03/13/2017 1:2016 1:47am Lymphocytes # (Auto) 2.01 x10^3/uL 1.50-4.00 03/13/2017 1:2016 1:47am Monocytes # (Auto) 0.57 x10^3/uL 0.20-0.80 03/13/2017 1:2016 1:47am Eosinophils # (Auto) 0.07 x10^3/uL 0.04-0.40 03/13/2017 1:2016 1:47am Basophils # (Auto) 0.02 x10^3/uL 0.02-0.10 03/13/2017 1:2016 1:47am Sodium Level 141 mmol/L 137-145 03/13/2017 1:03/13/2017 2:02am Potassium Level 3.3 mmol/L L 3.5-5.1 03/13/2017 1:03/13/2017 2: 02am Carbon Dioxide Level 23.0 mmol/L 22-30 03/13/2017 1:03/13/2017 2: 02am Anion Gap 16.3 mEq/L H 8-16 03/13/2017 1:03/13/2017 2:02am Blood Urea Nitrogen 14 mg/dL 7-17 03/13/2017 1:29am 03/13/2017 2:02am Creatinine 0.94 mg/dl 0.52-1.04 03/13/2017 1:29am 03/13/2017 2:02am Est Glomerular Filtrat Rate mL/min 74.46 03/13/2017 1:29am 2016 2:02am GFR NORMALS: Stage I: GFR >90 Stage II GFR 60-89 Stage III GFR 30-60 Stage IV: GFR 15-29 Stage V: GFR <15 BUN/Creatinine Ratio 14.89 03/13/2017 1:29am 03/13/2017 2:02am Glucose Level 98 mg/dL 74-106 03/13/2017 1:29am 03/13/2017 2:02am Calcium Level 9.5 mg/dL 8.4-10.2 03/13/2017 1:29am 03/13/2017 2:02am Troponin < 0.05 mg/mL 0-0.056 03/13/2017 1:2903/13/2017 2:02am Procedures No known history of procedures. Encounters Encounter Location Arrival/Admit Date Discharge/Depart Date Attending Provider Departed Emergency Room [facility] 03/13/17 1:55am 03/13/17 3: 10am SHAHRIAR SANCHEZ MD Recent Diagnosis
--- OUTSIDE RECORDS SUMMARY | 2017-09-02 18:55 | XMS REPORT | Continuity of Care Document ---
Author Author [facility] Organization [facility] Address [address] [place] [address] Phone Unavailable Care Team Providers Care Front Office Agent Name Role Phone SHAHRIAR SANCHEZ MD PCP Advance Directives Directive Response Recorded Date/Time Advance Directives No 03/13/17 1:58am Advance Directive on File No 03/13/17 2:30am Durable POA for HC No 03/13/17 2:30am Power of Assembly Manager No 03/13/17 2:30am Organ Donor No 03/13/17 2:30am Living Will No 03/13/17 2:30am What is your agent's or employment program representative's phone number? No 03/13/17 1:59am Chief [...] - 99.5) 03/13/2017 2:58am Temperature (Calculated Celsius) 36.86998 degrees C (36.4 - 37.5) 03/13/2017 2:58am [...] Discharge/Depart Date Attending Provider Departed Emergency Room [facility] 03/13/17 1:55am 03/13/17 3: 10am SHAHRIAR SANCHEZ MD Recent Diagnosis
--- NOTE | 2017-09-02 19:30 | ED General ---
General Chief Complaint: Dizziness/Syncope Stated Complaint: NECK PAIN;DIZZINESS Nursing Triage Note: patient reports tinnitis, dizziness, drooling for years, patients mother reports patient being evaluated numerous times for this. patient reports today about 1400 her vision began darkened and she felt she was going to pass out. patient reports this has happened numerous times Nursing Sepsis Screen: No Definite Risk History of Present Illness Time Seen by Provider: 19:00 Initial Comments 22-year-old female presents for acute dizziness. She states that she' s had tinnitus, dizziness, migraine and left-sided anterior neck pain for the last several weeks. She has had an MRI of the head and neck August 2017 at [facility], these results have been reviewed and were normal. The patient states that she "has a vessel injury in her neck " she denies any head or neck injuries. She is having an additional MRI or possibly an MRA in the near future at [facility]. She does report being sexually active and is no longer taking Depo-Provera. She has had multiple workups that providers from here to [place] including psych consults which have all been negative. She does state that if I do not figure out what is wrong with her tonight, she will " kill herself." She does report visual changes however she is able to read close and distant prep with no problems. She is extremely anxious but when anxiety is brought up she becomes very defensive. Her mother is present with her. The patient is crying, uncontrollably however when given direct statements and request, she is able to follow them. She also states "please check my calcium, as I know the calcium deposits are in my ear causing ringing" She has an allergy to hydrocodone, which she states she has taken in the past for menstrual cramps. She took meclizine at 1600 today with no improvement in her symptoms. Timing/Duration: Getting Worse Severity: Moderate Associated Systoms: Headaches, Loss of Appetite, No Seizure, Syncope Allergies and Home Medications Allergies Coded Allergies: hydrocodone (Verified Adverse Reaction, Mild, odd sensation, 07/20/15) Uncoded Allergies: [id number] (HAYFEVER) (Allergy, Mild, 07/26/09) Home Medications Hydrocortisone/Pramoxine 30 Gm Cream.appl, 30 GM RC UD PRN for HEMORRHOIDS, #1 Ref 0 apply to affected area qid x7-10 days prn hemorrhoids Prescribed by: JODY CRUZ on 11/16/15 1533 Lorazepam 1 Mg Tablet, 1 MG PO Q8H, #15 Ref 0 Prescribed by: KEENAN LUNA on 09/02/17 2216 Polyethylene Glycol 3350 119 Gm Powder, 17 GM PO HS PRN for CONSTIPATION, #1 Ref 0 Prescribed by: JODY CRUZ on 11/16/15 1533 Constitutional: see HPI, dizziness, weakness EENTM: see HPI, throat pain Respiratory: no symptoms reported, see HPI Cardiovascular: no symptoms reported, see HPI Gastrointestinal: see HPI, nausea, vomiting (approximately 2 weeks ago) Musculoskeletal: see HPI, neck pain Skin: no symptoms reported, see HPI Psychiatric/Neurological: See HPI, Anxiety, Emotional Problems All Other Systems Reviewed Negative Unless Noted: Yes Past Lgpyadm-Nchqpr-Kesojh Hx Patient Social History Alcohol Use: Denies Use Recreational Drug Use: No Smoking Status: Never a Smoker Recent Foreign Travel: No Contact w/Someone Who Travel: No Recent Infectious Disease Expo: No Recent Hopitalizations: No Physical Abuse: No Sexual Abuse: No Seasonal Allergies Seasonal Allergies: No Surgeries History of Surgeries: No Respiratory History of Respiratory Disorde: No Cardiovascular History of Cardiac Disorders: No Neurological History of Neurological Disord: No Reproductive System Hx Reproductive Disorders: No Genitourinary History of Genitourinary Disor: No Gastrointestinal History of Gastrointestinal Di: No Musculoskeletal History of Musculoskeletal Dis: No Endocrine History of Endocrine Disorders: No HEENT History of HEENT Disorders: Yes HEENT Disorders: Tinnitis Loss of Vision: Bilateral Cancer History of Cancer: No Psychosocial History of Psychiatric Problem: No Suicide Risk Score: 0 Integumentary History of Skin or Integumenta: No Blood Transfusions History of Blood Disorders: No Adverse Reaction to a Blood Tr: No Family Medical History Significant Family History: No Pertinent Family Hx Physical Exam Vital Signs Vital Sign - Last 12Hours 09/02/17 18:56 Temp 98.2 Pulse 102 Resp 26 B/P (MAP) 140/99 Pulse Ox 100 Capillary Refill : Less Than 3 Seconds General Appearance: No Apparent Distress, WD/WN Eyes: Bilateral Eye Normal Inspection, Bilateral Eye PERRL, Bilateral Eye EOMI HEENT: PERRL/EOMI, TMs Normal, Normal ENT Inspection, Pharynx Normal Neck: Full Range of Motion, Normal Inspection, Non Tender, Supple, No Lymphadenopathy (L), No Lymphadenopathy (R), Other (patient reports swelling in her left neck however it is not visualized or palpated.) Respiratory: Chest Non Tender, Lungs Clear Cardiovascular: No Edema, No Murmur, Normal Peripheral Pulses, Tachycardia, Other (no carotid bruit) Neurologic/Psychiatric: Alert, Oriented x3, No Motor/Sensory Deficits, counselor camp II- XII Norm as Tested Skin: Normal Color, Warm/Dry Lymphatic: No Adenopathy Progress/Results/Core Measures Results/Orders Lab Results Laboratory Tests Test 09/02/17 19:34 09/02/17 19:40 Range/Units White Blood Count 7.6 4.3-11.0 10^3/uL Red Blood Count 4.87 4.35-5.85 10^6/uL Hemoglobin 14.6 11.5-16.0 G/DL Hematocrit 43 35-52 % Mean Corpuscular Volume 88 80-99 FL Mean Corpuscular Hemoglobin 30 25-34 PG Mean Corpuscular Hemoglobin Concent 34 32-36 G/DL Red Cell Distribution Width 12.2 10.0-14.5 % Platelet Count 193 130-400 10^3/uL Mean Platelet Volume 10.4 7.4-10.4 FL Neutrophils (%) (Auto) 58 42-75 % Lymphocytes (%) (Auto) 33 12-44 % Monocytes (%) (Auto) 7 0-12 % Eosinophils (%) (Auto) 2 0-10 % Basophils (%) (Auto) 0 0-10 % Neutrophils # (Auto) 4.4 1.8-7.8 X 10^3 Lymphocytes # (Auto) 2.5 1.0-4.0 X 10^3 Monocytes # (Auto) 0.5 0.0-1.0 X 10^3 Eosinophils # (Auto) 0.1 0.0-0.3 10^3/uL Basophils # (Auto) 0.0 0.0-0.1 10^3/uL Sodium Level 140 135-145 MMOL/L Potassium Level 3.8 3.6-5.0 MMOL/L Chloride Level 109 H 98-107 MMOL/L Carbon Dioxide Level 21 21-32 MMOL/L Anion Gap 10 5-14 MMOL/L Blood Urea Nitrogen 10 7-18 MG/DL Creatinine 0.89 0.60-1.30 MG/DL Estimat Glomerular Filtration Rate > 60 BUN/Creatinine Ratio 11 Glucose Level 97 70-105 MG/DL Calcium Level 9.9 8.5-10.1 MG/DL Total Bilirubin 0.3 0.1-1.0 MG/DL Aspartate Amino Transf (AST/SGOT) 18 5-34 U/L Alanine Aminotransferase (ALT/SGPT) 11 0-55 U/L Alkaline Phosphatase 75 40-136 U/L Total Protein 8.0 6.4-8.2 GM/DL Albumin 4.7 H 3.2-4.5 GM/DL Thyroid Stimulating Hormone (TSH) 1.12 0.35-4.94 UIU/ML TSH [place] Testing 1.12 0.35-4.94 UIU/ML Serum Alcohol < 10 <10 MG/DL Urine Opiates Screen NEGATIVE NEGATIVE Urine Oxycodone Screen NEGATIVE NEGATIVE Urine Methadone Screen NEGATIVE NEGATIVE Urine Propoxyphene Screen NEGATIVE NEGATIVE Urine Barbiturates Screen NEGATIVE NEGATIVE Ur Tricyclic Antidepressants Screen NEGATIVE NEGATIVE Urine Phencyclidine Screen NEGATIVE NEGATIVE Urine Amphetamines Screen NEGATIVE NEGATIVE Urine Methamphetamines Screen NEGATIVE NEGATIVE Urine Benzodiazepines Screen NEGATIVE NEGATIVE Urine Cocaine Screen NEGATIVE NEGATIVE Urine Cannabinoids Screen NEGATIVE NEGATIVE My Orders Orders - KEENAN LUNA Urine Bedside (09/02/17 19:09) Alcohol (09/02/17 19:09) Cbc With Automated Diff (09/02/17 19:09) Comprehensive Metabolic Panel (09/02/17 19:09) Drug Screen Stat (Urine) (09/02/17 19:09) Thyroid Analyzer (09/02/17 19:09) Thyroid Stimulating Hormone (09/02/17 19:09) Lorazepam Tablet (Ativan Tablet) (09/02/17 20:45) Lorazepam Injection (Ativan Injection) (09/02/17 20:41) Medications Given in ED Current Medications Medications Dose Ordered Sig/Aime Route Start Time Stop Time Status Last Admin Dose Admin Lorazepam 2 mg STK-MED ONCE .ROUTE 09/02/17 20:41 09/02/17 20:50 DC 09/02/17 20:45 2 MG Vital Signs/I&O Vital Sign - Last 12Hours 09/02/17 09/02/17 09/02/17 18:56 21:53 22:29 Temp 98.2 98.2 Pulse 102 90 90 Resp 26 18 18 B/P (MAP) 140/99 95/57 Pulse Ox 100 98 98 Blood Pressure Mean: 113 Progress Note : Time: 19:00 Progress Note Initial evaluation completed, patient declined needing anything for anxiety. She denies any suicidal thoughts, however when confronted about her statements that she would kill herself if I could not find her health problem, she states that she has never considered suicide and has no plan. She just feels as though she has been to multiple providers and they have not found a problem. We will get labs and reevaluate. 2024 labs all essentially normal. Discussed this with the patient and her mother. Discussed all previous treatments the patient has had. There has been lots of evaluations with various providers but no primary care provider assessing all the results. There is been lack of continuity and care. Her mother verbally states that this is not a mental health situation. She was evaluated at [address] [place] [address] and [facility] and was told there was no diagnostic criteria for psychiatric disorders. 2044 patient became extremely agitated and threatening to her mother, she was easily calmed by talking to her. She states "I have to find out what is wrong with me or I will kill myself, I can't live with this any longer." Recommended trying Ativan 1 mg by mouth. Patient and mother are in agreement with this. After leaving the room a loud sound was heard in the room, she kicked the bedside table into the wall. She is apologetic and states that she doesn't mean to act this way that she is tired of her situation. Recommended Ativan 2 mg IM, patient agreed to this treatment plan. 2129 patient lying in bed, calm and relaxed. No requests at this time. 2150 patient resting with eyes closed, easily arousable reports this is the first time in 2 years that her head is not ending and the tinnitus is minimal. 2220 spoke with patient and mother at length, she denies any suicidal ideation or plan at this point in time. She understands that this is not an option and reports although she makes the verbal threats she would never go through with this. She denies ever having thoughts of harming others. She is very frustrated with dealing with this for the last 2 years. We discussed several options in better continuity of her care including establishing with a primary care provider. He is open to all of the suggestions I also encouraged her to go to [facility] for counseling. Upon moving from lying to sitting she had minimal tinnitus and no vertigo. She was able to eat crackers injuring water, she reports this is the first time in a long time that she couldn't chew and swallow without her head hurting. Recommended a prescription for Ativan 1 mg to take every 8 hours, her mother will keep these in her possession and administer them more frequently than prescribed. Referral services were listed on her discharge planning and she will set up appointments. She will also consider setting up at [facility] to get insurance assistance from the [facility]. All questions were answered and return precautions reviewed. Departure Impression Impression: Primary Impression: Conversion disorder Additional Impressions: Vertigo Tinnitus Qualified Codes: H93.13 - Tinnitus, bilateral Disposition: 01 HOME, SELF-CARE Condition: Improved Departure-Patient Inst. Decision time for Depature: 22:00 Referrals: RAINER GILLIAM DO (PCP) Primary Care Physician MEME DENTON (Family) Primary Care Physician Patient Instructions: Migraine Headache (DC), Tinnitus (Ringing in the Ears), Vertigo (a Type of Dizziness) (DC) Add. Discharge Instructions: Schedule follow-up appointment with a primary care provider, Dr. Lantigua or Dr. Hoffman in [place]. Consider referral to neurology for migraines or pain medicine specialist at [address] ([phone]) Schedule with [facility] [phone] for counseling. Schedule with Dr. Johnson, Ear, Nose and Throat Specialist, get copies of all previous studies, Take Ativan as prescribed every 8 hous, no more frequently. Return to emergency department or call 911 if suicidal thoughts with a plan. Return to emergency department if symptoms are not improving or worsen. All discharge instructions reviewed with patient and/or family. Voiced understanding. Scripts Lorazepam (Ativan) 1 Mg Tablet 1 MG PO Q8H, #15 TAB 0 Refills Prov: KEENAN LUNA 09/02/17 KEENAN LUNA Sep 02, 2017 19:30
[2017-09-02 19:45] LABS: BASOPHILS % (AUTO) 0 % (0-10); EOSINOPHILS # (AUTO) 0.1 10^3/uL (0.0-0.3); EOSINOPHILS % (AUTO) 2 % (0-10); LYMPHOCYTES # (AUTO) 2.5 X 10^3 (1.0-4.0); LYMPHOCYTES % (AUTO) 33 % (12-44); MEAN CORPUSCULAR HEMOGLOBIN 30 PG (25-34); MEAN CORPUSCULAR HGB CONC 34 G/DL (32-36); MEAN CORPUSCULAR VOLUME 88 FL (80-99); MEAN PLATELET VOLUME 10.4 FL (7.4-10.4); MONOCYTES # (AUTO) 0.5 X 10^3 (0.0-1.0); MONOCYTES % (AUTO) 7 % (0-12); NEUTROPHILS # (AUTO) 4.4 X 10^3 (1.8-7.8); NEUTROPHILS % (AUTO) 58 % (42-75); PLATELET COUNT 193 10^3/uL (130-400); RED BLOOD COUNT 4.87 10^6/uL (4.35-5.85); RED CELL DISTRIBUTION WIDTH 12.2 % (10.0-14.5); WHITE BLOOD COUNT 7.6 10^3/uL (4.3-11.0)
[2017-09-02 20:05] LABS: ALANINE AMINOTRANSFERASE 11 U/L (0-55); ALBUMIN 4.7 GM/DL (3.2-4.5); ALCOHOL < 10 MG/DL (<10); ANION GAP 10 MMOL/L (5-14); ASPARTATE AMINO TRANSFERASE 18 U/L (5-34); BILIRUBIN,TOTAL 0.3 MG/DL (0.1-1.0); BLOOD UREA NITROGEN 10 MG/DL (7-18); BUN/CREATININE RATIO 11; CALCIUM 9.9 MG/DL (8.5-10.1); CARBON DIOXIDE 21 MMOL/L (21-32); CHLORIDE 109 MMOL/L (98-107); CREATININE SERUM 0.89 MG/DL (0.60-1.30); GFR ESTIMATED > 60; GLUCOSE 97 MG/DL (70-105); POTASSIUM 3.8 MMOL/L (3.6-5.0); SODIUM 140 MMOL/L (135-145)
[2017-09-02 20:25] LABS: THYROID STIMULATING HORMONE 1.12 UIU/ML (0.35-4.94)
[2017-09-02] MEDS ORDERED: LORazepam 1 MG (ATIVAN) TAB PO ONE (20:45)
[2017-09-02] MEDS: LORazepam INJ 2 MG/ML (ATIVAN) VIAL ONE (20:45)
[2017-09-02 21:53] VITALS: BP 95/57
[2017-09-02] MEDS ORDERED: LORA-405 PO (22:16)
[2017-09-02 22:29] VITALS: BP 95/57
== END 2017-09-02 22:29 | disposition home or self-care (01) ==
LOC: EDUNIT# 18:34 → ER 18:35
DX: F44.4 Conversion disorder with motor symptom or deficit (principal); H93.13 Tinnitus, bilateral; G43.909 Migraine, unspecified, not intractable, without status migrainosus
CPT/HCPCS: 36415; 80053; 80306; 80320; 84443; 84703; 85025; 99284

== ENCOUNTER → 2017-09-13 | Outpatient (CLI) | payer OTHER ==
[~2017-09-13] MED LIST changes: +LORA-405 PO
--- NOTE | 2017-09-13 11:00 | Diagnostic Imaging Report ---
CLINICAL INDICATION: Patient with chronic headaches, dizziness times a couple of months and left-sided throat pain x9 years. Patient has palpable nodule or lump felt on inside of throat by patient. EXAMINATION: MRI of the cervical spine performed without IV contrast. Sequences include sagittal T1, sagittal T2, sagittal T2 fat-sat, and axial T2. COMPARISON: None. FINDINGS: Cervical spine has normal alignment with no fracture or dislocation. There is normal craniocervical and anterior atlanto-odontoid alignment. Cervical spinal cord has normal anatomic appearance with no abnormal cord signal. Limited visualization of the posterior fossa is unremarkable. There is no paraspinal soft tissue abnormality. The cerebellar tonsils are not low-lying. There is a small C5-C6 posterior disc bulge with focal annular tear. There is minimal impression upon the thecal sac. There is a small anterior disc bulge at the C3-C4 level and C5-C6 level. There are also minimal sized posterior disc bulge at the C3-C4, C4-C5, and C6-C7 levels. Otherwise, there is no other significant degenerative disc disease. There is no significant central spinal canal or neural foramen narrowing. The intervertebral disk heights are well-preserved. IMPRESSION: 1: Minimal cervical spine degenerative disease, as described above, including a small C5-C6 posterior disc bulge with focal annular tear. There is no significant central spinal canal or neural foramen narrowing. 2: Otherwise, unremarkable MRI of the cervical spine. Dictated by: Dictated on workstation # [id number]
== END ==
LOC: RAD 09:18
PROVIDERS: ATTEND Nurse Practitioner Family
DX: M50.20 Other cervical disc displacement, unspecified cervical region (principal)
CPT/HCPCS: 72141

== ENCOUNTER → 2017-11-04 | Outpatient (CLI) | payer SELFPAY ==
--- NOTE | 2017-11-04 13:15 | Diagnostic Imaging Report ---
PROCEDURE: US PELVIC (NON OB) TECHNIQUE: Multiple real-time grayscale images were obtained over the pelvis in various projections transabdominally. INDICATION: Abnormal uterine bleeding. FINDINGS: The previous pelvic ultrasound exam performed on 01/22/2011 failed to show any sign of an acute pelvic abnormality. On this study, the uterus is nongravid and not enlarged measuring 7.3 x 5.0 x 3.6 cm. The endometrial lining is not thickened measuring 3 mm. There is no focal mass involving the uterus to suggest a fibroid. Both ovaries are identified. Each ovary contains a few subcentimeter follicles. There is no solid pelvic mass or free fluid collection noted. IMPRESSION: There is no evidence for an acute pelvic abnormality. Dictated on workstation # [id number]
== END ==
LOC: RAD 12:04
DX: N93.9 Abnormal uterine and vaginal bleeding, unspecified (principal)
CPT/HCPCS: 76856

== ENCOUNTER 2018-03-06 19:31 | Emergency (ER) | payer SELFPAY ==
[~2018-03-06] VITALS: Ht 160 cm; Wt 57.2 kg
--- NOTE | 2018-03-06 20:58 | ED GU-Female ---
General Chief Complaint: General Problems/Pain Stated Complaint: CRAMPS Nursing Triage Note: PATIENT IS ON HER FIRST DAY OF HER PERIOD. STATES SHE HAS NOT HAD A PERIOD IN TWO MONTHS. SHE ALWAYS HAS CRAMPS ON HER PERIOD BUT STATES THIS IS WORSE THAN USUAL. PAIN STARTED AT 1700. SHE HAS HAD NAUSEA OFF AND ON AND CLAIMS SHE VOMITTED ONCE IN THE WAITING ROOM BATHROOM. Nursing Sepsis Screen: No Definite Risk Source: patient Exam Limitations: no limitations History of Present Illness Date Seen by Provider: March 06, 2018 Time Seen by Provider: 20:48 Initial Comments PT ARRIVES VIA POV C/O "SEVERE CRAMPS" SINCE 1700 TODAY STATES SHE STARTED HER PERIOD AT 1500 TODAY, AND BEGAN HAVING MENSTRUAL CRAMPS AT 1700 STATES SHE TOOK AN UNKNOWN MUSCLE RELAXANT TODAY AT 1400 "BECAUSE I KNEW IT WAS COMING" THIS IS A CHRONIC PROBLEM--STATES " I USUALLY HAVE 1 BAD PAIN DAY AND I CAN'T GET OUT OF BED ALL DAY, BUT THIS WAS TWICE BAD" STATES SHE HAS NOT HAD A PERIOD IN OVER 2 MONTHS, HAD NEGATIVE HOME TEST LAST WEEK. PT IS NOT ON CONTROL HAS NOT TAKEN ANYTHING FOR PAIN PT STATES SHE HAS HAD NAUSEA AND VOMITED X 1 IN WAITING ROOM BATHROOM. PCP: SOWMYA Allergies and Home Medications Allergies Coded Allergies: hydrocodone (Verified Adverse Reaction, Mild, odd sensation, 07/20/15) Uncoded Allergies: [id number] (HAYFEVER) (Allergy, Mild, 07/26/09) Home Medications Hydrocortisone/Pramoxine 30 Gm Cream.appl, 30 GM RC UD PRN for HEMORRHOIDS apply to affected area qid x7-10 days prn hemorrhoids Prescribed by: JODY CRUZ on 11/16/15 1533 Lorazepam 1 Mg Tablet, 1 MG PO Q8H Prescribed by: KEENAN LUNA on 09/02/17 2216 Polyethylene Glycol 3350 119 Gm Powder, 17 GM PO HS PRN for CONSTIPATION Prescribed by: JODY CRUZ on 11/16/15 1533 Patient Home Medication List Home Medication List Reviewed: Yes Review of Systems Constitutional: no symptoms reported Cardiovascular: no symptoms reported Gastrointestinal: see HPI, abdominal pain, nausea, vomiting Genitourinary: see HPI; denies dysuria, denies flank pain Musculoskeletal: no symptoms reported Skin: no symptoms reported Psychiatric/Neurological: No Symptoms Reported Endocrine: No Symptoms Reported Hematologic/Lymphatic: No Symptoms Reported Past Rxhhrap-Aivhqh-Rpbuza Hx Patient Social History Alcohol Use: Denies Use Recreational Drug Use: No Smoking Status: Never a Smoker Recent Foreign Travel: No Contact w/Someone Who Travel: No Recent Infectious Disease Expo: No Recent Hopitalizations: No Seasonal Allergies Seasonal Allergies: No Past Medical History Surgeries: No Respiratory: No Cardiac: No Neurological: No : No Reproductive Disorders: No Female Reproductive Disorders: Menstrual Problems Genitourinary: No Gastrointestinal: No Musculoskeletal: No Endocrine: No HEENT: Yes Tinnitis Loss of Vision: Bilateral Cancer: No Psychosocial: No Integumentary: No Blood Disorders: No Adverse Reaction/Blood Tranf: No Family Medical History No Pertinent Family Hx Physical Exam Vital Signs Vital Signs - First Documented 03/06/18 03/06/18 20:36 22:20 Temp 98.1 Pulse 97 Resp 18 B/P (MAP) 111/71 (84) Pulse Ox 100 Capillary Refill : Less Than 3 Seconds General Appearance: WD/WN, no apparent distress, other (WALKS AND MOVES SLOWLY , SLIGHTLY BENT AT WAIST. SOMEWHAT DRAMATIC ) Cardiovascular: regular rate, rhythm, no murmur Respiratory: normal breath sounds, no respiratory distress, no accessory muscle use Gastrointestinal: soft, no organomegaly, no pulsatile mass, tenderness ( DIFFUSE LOWER ABDOMINAL TENDERNESS. BILATERAL FLANK TENDERNESS) Back: normal inspection, no CVA tenderness Extremities: normal inspection Neurologic/Psychiatric: vice president biostatistics II-XII nml as tested, no motor/sensory deficits, alert, oriented x 3 Skin: normal color, warm/dry Progress/Results/Core Measures Suspected Sepsis Recent Fever Within 48 Hours: No Infection Criteria Present: None New/Unexplained Altered Menta: No Sepsis Screen: No Definite Risk SIRS Temperature:98.1 Pulse: 97 Respiratory Rate: 18 Blood Pressure 111 /71 Mean: 84 Results/Orders My Orders Orders - MAGI GILL DO Urine Bedside (03/06/18 20:53) Ketorolac Injection (Toradol Injection) (03/06/18 21:30) Orphenadrine Injection (Norflex Injectio (03/06/18 21:30) Diphenhydramine Injection (Benadryl Inje (03/06/18 21:30) Ondansetron Oral Dissolve Tab (Zofran (03/06/18 21:30) Rx-Naproxen (Rx-Naprosyn) (03/06/18 21:37) Medications Given in ED Current Medications Medications Dose Ordered Sig/Aime Route Start Time Stop Time Status Last Admin Dose Admin Diphenhydramine HCl 50 mg ONCE ONCE IM 03/06/18 21:30 03/06/18 21:31 DC 03/06/18 21:51 50 MG Ketorolac Tromethamine 60 mg ONCE ONCE IM 03/06/18 21:30 03/06/18 21:31 DC 03/06/18 21:51 60 MG Ondansetron HCl 4 mg ONCE ONCE PO 03/06/18 21:30 03/06/18 21:31 DC 03/06/18 21:43 4 MG Orphenadrine Citrate 60 mg ONCE ONCE IM 03/06/18 21:30 03/06/18 21:31 DC 03/06/18 21:51 60 MG Vital Signs/I&O 03/06/18 03/06/18 20:36 22:20 Temp 98.1 98.1 Pulse 97 97 Resp 18 18 B/P (MAP) 111/71 (84) 111/71 (84) Pulse Ox 100 Capillary Refill : Less Than 3 Seconds Blood Pressure Mean: 84 Progress Note : Progress Note PAIN MUCH IMPROVED AT DISMISSAL AND NAUSEA IS GONE Departure Impression Primary Impression: Dysmenorrhea Additional Impression: Irregular menstrual bleeding Disposition: 01 HOME, SELF-CARE Condition: Improved Departure-Patient Inst. Referrals: [facility] Patient Instructions: Absent or Irregular Periods, Menstrual Cramps Add. Discharge Instructions: LOTS OF CLEAR LIQUIDS TAKE YOUR MUSCLE RELAXANT NEEDED FOR CRAMPING FOLLOW UP WITH [facility] TOMORROW IF NO BETTER All discharge instructions reviewed with patient and/or family. Voiced understanding. MAGI GILL DO March 06, 2018 20:58
[2018-03-06] MEDS ORDERED: ORPHENADRINE 60 MG/2 ML (NORFLEX) AMP IM ONE (21:30)
[2018-03-06] MEDS ORDERED: ONDANSETRON 4 MG (ZOFRAN) ORAL DISSOLVE TAB PO ONE (21:30)
[2018-03-06] MEDS ORDERED: diphenhydrAMINE 50 MG/ML INJ (BENADRYL) IM ONE (21:30)
[2018-03-06] MEDS ORDERED: KETOROLAC 60 MG/2 ML VIAL IM ONE (21:30)
[2018-03-06] MEDS ORDERED: RX-NAPROXEN (NAPROSYN) 250 MG TAB PPK#4 PO STA (21:37)
[2018-03-06 22:20] VITALS: BP 111/71
== END 2018-03-06 22:23 | disposition home or self-care (01) ==
LOC: EDUNIT# 19:31 → ER 19:36
DX: N94.6 Dysmenorrhea, unspecified (principal); N92.6 Irregular menstruation, unspecified; Z88.5 Allergy status to narcotic agent
CPT/HCPCS: 84703; 96372; 99284